=== PATIENT | male | born 1970 | race African-American/Black ===

== ENCOUNTER 2022-04-30 03:09 | Emergency (ER) | payer BC, OTHER ==
[2022-04-30] MEDS ORDERED: Amlodipine 5 MG TAB ONE (03:34)
[2022-04-30] MEDS ORDERED: Lisinopril 10 MG TAB ONE (03:34)
[2022-04-30 03:40] LABS: #Basophils 0.1 10x3/uL (0.0-0.2); #Eosinphils 0.2 10x3/uL (0.0-0.5); #Monocytes 0.8 10x3/uL (0.0-1.1); %Basophils 0.7 % (0.0-2.0); %Eosinophils 1.6 % (0.0-6.0); %Lymphocytes 41.7 % (18.0-47.0); %Monocytes 7.3 % (0.0-10.0); %Neutrophils 48.5 % (40.0-75.0); Hemoglobin 12.3 g/dL (13.5-17.5); Mean Corpuscular HGB CONC 32.8 g/dL (32.0-36.0); Mean Corpuscular Hemoglobin 28.7 pg (27.0-33.0); Mean Corpuscular Volume 87.6 fl (81.2-95.1); Mean Platelet Volume 10.4 fl (7.4-10.4); Platelet Count 221 10x3/uL (150-450); RBC Distribution Width 13.8 % (11.5-14.5); Red Blood Cell (RBC) Count 4.28 10x6/uL (4.32-5.72); White Blood Cell (WBC) Count 10.3 10x3/uL (3.5-10.5)
[2022-04-30 03:55] LABS: ALT (SGPT) 14 U/L (8-55); AST (SGOT) 26 U/L (5-34); Albumin 4.2 g/dL (3.5-5.0); Alkaline Phosphatase 68 U/L (40-110); Anion Gap 19 mmol/L (10-20); BUN (Urea Nitrogen) 25 mg/dL (8.4-25.7); Bilirubin, Total 0.3 mg/dL (0.2-1.2); Calc. Creatinine Clearance 0 mL/min (70-130); Calcium 8.9 mg/dL (7.8-10.44); Carbon Dioxide 24 mmol/L (22-29); Chloride 102 mmol/L (98-107); Globulin 3.1 g/dL (2.4-3.5); Glucose 133 mg/dL (70-105); Protein, Total 7.3 g/dL (6.0-8.3); Sodium 142 mmol/L (136-145)
[2022-04-30 03:58] LABS: Potassium 2.7 mmol/L (3.5-5.1)
[2022-04-30 04:30] LABS: CKMB 7.1 ng/mL (0-6.6)
== END 2022-04-30 06:37 | disposition home or self-care (01) ==
LOC: CSHERS 03:09
DX: K11.20 Sialoadenitis, unspecified (principal); N17.9 Acute kidney failure, unspecified; E87.6 Hypokalemia; I16.1 Hypertensive emergency; R77.8 Other specified abnormalities of plasma proteins; F17.210 Nicotine dependence, cigarettes, uncomplicated; Z79.899 Other long term (current) drug therapy
CPT/HCPCS: 36415; 70492; 80053; 82553; 84484; 85025; 93005